=== PATIENT | male | born 1960 | race Caucasian/White ===

== ENCOUNTER → 2017-02-05 | Outpatient (CLI) | payer BC, OTHER ==
--- NOTE | 2017-02-10 23:28 | SLEEPCENT ---
DATE OF PROCEDURE: 02/05/2017 ORDERED BY: Jemima Perez Nocturnal polysomnography was performed for evaluation of sleep physiology in this patient with a prior history of sleep apnea, who has accomplished significant weight loss. 8 hours and 34 minutes of data were reviewed. There were 395 minutes of sleep identified. Sleep latency was prolonged at 46 minutes. Rapid eye movement (REM) latency was prolonged at 176 minutes. Sleep architecture showed severe fragmentation until interventions were made. Overall sleep efficiency was 77.9%. The patient's electrocardiogram showed a sinus rhythm with a borderline first-degree AV block, average heart rate was 57 beats per minute. Rate variability was seen between 45 and 80 beats per minute. EEG showed normal waveforms for awake and sleep. There were 178 respiratory events identified of 10 seconds in duration or greater for an apnea-hypopnea index of 27. Having clearly established the presence of obstructive sleep apnea syndrome early in the test, the study was stopped after midnight for the application of pressure therapy. The patient was already fit with a [employer] full face mask of medium size, 5 cm of water pressure were applied to the circuit and the lights were again extinguished. Pressure titration was performed throughout the remaining portion of the night to an optimal continuous positive airway pressure (CPAP) of +10 with which the patient slept through REM without respiratory event or oxygen desaturation. IMPRESSION: Obstructive sleep apnea syndrome (G47.33). RECOMMENDATION: Nightly use of pressure therapy 10 cm of water. Copy To: Dr. Crocker
== END ==
LOC: M SLEEP 19:44
PROVIDERS: ATTEND Nurse Practitioner Adult Health
DX: G47.33 Obstructive sleep apnea (adult) (pediatric) (principal)

== ENCOUNTER → 2017-04-22 | Outpatient (CLI) | payer BC, OTHER | LOC: M EKG 17:36 | DX: I10 Essential (primary) hypertension (principal) | CPT/HCPCS: 93005 ==

== ENCOUNTER 2017-05-01 09:17 | Day surgery (SDC) | payer BC, OTHER ==
[2017-05-01] MEDS: LR 1,000 ML IV ×2 (09:56→12:40)
[2017-05-01] MEDS ORDERED: ONDANSETRON 4MG/2ML VIAL (J2405) As Ordered (10:08)
[2017-05-01] MEDS ORDERED: dexameTHASONE 4 MG/ML 1ML VIAL (J1100) As Ordered (10:08)
[2017-05-01] MEDS ORDERED: ROCURONIUM BROMIDE 50 MG/5 ML VIAL As Ordered (10:08)
[2017-05-01] MEDS ORDERED: GLYCOPYRROLATE INJ 0.2 MG/ML 2 ML VIAL As Ordered (10:08)
[2017-05-01] MEDS ORDERED: HYDROmorphone HCL 2 MG/ML 1ML VIAL (J1170) As Ordered (10:08)
[2017-05-01] MEDS ORDERED: KETOROLAC 60 MG/2 ML VIAL (J1885) As Ordered (10:08)
[2017-05-01] MEDS ORDERED: NEOSTIGMINE 10 MG/10 ML VIAL (J2710) As Ordered (10:08)
[2017-05-01] MEDS ORDERED: LIDOCAINE 2% INJ 100 MG/5 ML SDV (FOR ANES.) As Ordered (10:08)
[2017-05-01] MEDS ORDERED: PROPOFOL 200 MG/20 ML VIAL As Ordered (10:08)
[2017-05-01] MEDS ORDERED: MIDAZOLAM INJ 2 MG/2 ML VIAL (J2250) As Ordered (10:09)
[2017-05-01] MEDS ORDERED: fentaNYL 100 MCG/2 ML INJECTION (J3010) As Ordered ×2 (10:09→12:19)
[2017-05-01] MEDS: LIDOCAINE W/EPINEPHRINE 1% 20ML VIAL As Ordered (11:37)
[2017-05-01] MEDS ORDERED: PERCOCET 5MG/325MG TAB As Ordered (12:19)
[2017-05-01] MEDS: fentaNYL 100 MCG/2 ML INJECTION (J3010) IV ×3 (12:20→12:37)
[2017-05-01] MEDS: PERCOCET 5MG/325MG TAB PO (12:25)
[2017-05-01] MEDS ORDERED: MEPERIDINE INJ 25 MG/ML VIAL (J2175) IV (12:45)
[2017-05-01] MEDS ORDERED: ONDANSETRON 4MG/2ML VIAL (J2405) IV (12:45)
[2017-05-01] MEDS ORDERED: NORCO, ANEXSIA 5/325MG TABLET (HYDROcodone/ACETAMINOPHEN) PO (12:45)
[2017-05-01] MEDS ORDERED: KETOROLAC 30 MG/ML VIAL (J1885) IV (12:45)
== END 2017-05-01 14:50 | disposition home or self-care (01) ==
LOC: M SDC 09:17
DX: K80.12 Calculus of gallbladder with acute and chronic cholecystitis without obstruction (principal); I11.9 Hypertensive heart disease without heart failure; K21.9 Gastro-esophageal reflux disease without esophagitis; G47.30 Sleep apnea, unspecified; E66.9 Obesity, unspecified; Z98.84 Bariatric surgery status; Z88.1 Allergy status to other antibiotic agents; Z88.0 Allergy status to penicillin; Z88.2 Allergy status to sulfonamides; Z79.899 Other long term (current) drug therapy; Z79.84 Long term (current) use of oral hypoglycemic drugs
CPT/HCPCS: 47562

== ENCOUNTER → 2017-07-08 | Outpatient (CLI) | payer BC, OTHER ==
[2017-07-08 15:18] LABS: BASO % 0.4 % (0.0-1.0); EOS # 0.2 10^3/uL (0.0-0.50); EOS % 3.3 % (0.0-3.0); HEMOGLOBIN 14.1 g/dl (14.0-18.0); IMMATURE GRANULOCYTE % 0.2 % (0-3.0); LYMPH # 1.7 10^3/uL (1.5-4.5); LYMPH % 36.3 % (24.0-44.0); MEAN CORPUSCULAR HEMOGLOBIN 29.7 pg (27.0-33.0); MEAN CORPUSCULAR HGB CONC 34.4 g/dl (32.0-36.5); MEAN CORPUSCULAR VOLUME 86.5 fl (80.0-96.0); MONO # 0.5 10^3/uL (0.0-0.8); MONO % 10.9 % (0.0-5.0); NEUTROPHILS # 2.2 10^3/uL (1.8-7.7); NEUTROPHILS % 48.9 % (36.0-66.0); PLATELET COUNT, AUTOMATED 199 10^3/uL (150-450); RED BLOOD COUNT 4.74 10^6/uL (4.30-6.10); RED CELL DISTRIBUTION WIDTH 12.7 % (11.5-14.5); WHITE BLOOD COUNT 4.6 10^3/uL (4.0-10.0)
[2017-07-08 15:31] LABS: ESTIMATED AVERAGE GLUCOSE 100 MG/DL (60-110); HEMOGLOBIN A1c 5.1 %
[2017-07-08 15:41] LABS: VITAMIN B12 LEVEL 978 PG/ML (247-911)
[2017-07-08 15:46] LABS: ALBUMIN 3.8 GM/DL (3.2-5.2); ALBUMIN/GLOBULIN RATIO 1.23 (1.00-1.93); ALKALINE PHOSPHATASE 84 U/L (45-117); ALT/SGPT 25 U/L (12-78); ANION GAP 6 MEQ/L (8-16); AST/SGOT 17 U/L (7-37); BILIRUBIN,TOTAL 0.4 MG/DL (0.2-1.0); BLOOD UREA NITROGEN 16 MG/DL (7-18); CALCIUM LEVEL 8.7 MG/DL (8.5-10.1); CARBON DIOXIDE LEVEL 30 MEQ/L (21-32); CHLORIDE LEVEL 107 MEQ/L (98-107); CREATININE FOR GFR 0.72 MG/DL (0.70-1.30); FERRITIN 15 NG/ML (26-388); GLOMERULAR FILTRATION RATE > 60.0 (>56); GLUCOSE, FASTING 93 MG/DL (70-100); IRON (FE) 74 UG/DL (65-175); MAGNESIUM LEVEL 2.3 MG/DL (1.8-2.4); PERCENT SATURATION 21.1 % (19.7-50.0); PHOSPHORUS LEVEL 3.8 MG/DL (2.5-4.9); POTASSIUM SERUM 4.1 MEQ/L (3.5-5.1); SODIUM LEVEL 143 MEQ/L (136-145); TOTAL IRON BINDING CAPACITY 350 UG/DL (250-450); TOTAL PROTEIN 6.9 GM/DL (6.4-8.2)
[2017-07-10 12:43] LABS: PRETREATED FOLATE FOR RBCFOL 11.4 NG/ML; RBC FOLATE 583.9 NG/ML (280-791)
== END ==
LOC: M LAB 14:27
DX: E55.9 Vitamin D deficiency, unspecified (principal)

== ENCOUNTER → 2021-05-30 | Outpatient (CLI) | payer BC, OTHER ==
[~2021-05-30] MED LIST: CARV12.5 PO; LEVOTAB10 PO; MOME50SP2; OMEP40CA4 PO; SING5CHW23 PO
[2021-05-30 13:19] LABS: HEMOGLOBIN 14.7 g/dl (13.5-17.5); MEAN CORPUSCULAR HEMOGLOBIN 30.8 pg (27.0-33.0); MEAN CORPUSCULAR HGB CONC 34.2 g/dl (32.0-36.5); PLATELET COUNT, AUTOMATED 174 10^3/uL (150-450); RED BLOOD COUNT 4.78 10^6/uL (4.30-6.10)
[2021-05-30 13:52] LABS: ALBUMIN 3.7 GM/DL (3.2-5.2); ALT/SGPT 34 U/L (12-78); BILIRUBIN,TOTAL 0.5 MG/DL (0.2-1.0); BLOOD UREA NITROGEN 14 MG/DL (7-18); CALCIUM LEVEL 8.9 MG/DL (8.8-10.2); CARBON DIOXIDE LEVEL 29 MEQ/L (21-32); CHLORIDE LEVEL 106 MEQ/L (98-107); CHOLESTEROL LEVEL 115 MG/DL (<200); CHOLESTEROL RISK RATIO 2.446 (<5); CREATININE FOR GFR 0.78 MG/DL (0.70-1.30); GLOMERULAR FILTRATION RATE > 60.0 (>49); GLUCOSE, FASTING 118 MG/DL (70-100); HDL CHOLESTEROL 47 MG/DL (>40); LDL CHOLESTEROL 46 MG/DL (<100); NON-HDL-C 68 MG/DL; SODIUM LEVEL 141 MEQ/L (136-145); TOTAL PROTEIN 6.7 GM/DL (6.4-8.2); TRIGLYCERIDES LEVEL 111 MG/DL (<150)
[2021-05-30 22:25] LABS: MAGNESIUM LEVEL 2.1 MG/DL (1.7-2.2)
== END ==
LOC: M PLALAB 09:48
PROVIDERS: ATTEND Internal Medicine
DX: I11.9 Hypertensive heart disease without heart failure (principal)

== ENCOUNTER → 2021-05-30 | Outpatient (CLI) | payer BC, OTHER ==
[2021-05-30 14:01] LABS: FERRITIN 19 NG/ML (26-388); IRON (FE) 66 UG/DL (65-175); PERCENT SATURATION 18.9 % (19.7-50.0); PHOSPHORUS LEVEL 3.2 MG/DL (2.5-4.9); THYROID STIMULATING HORMONE 0.786 uIU/ML (0.358-3.740); TOTAL IRON BINDING CAPACITY 350 UG/DL (250-450)
[2021-05-30 22:26] LABS: MAGNESIUM LEVEL 2.1 MG/DL (1.7-2.2)
[2021-05-31 10:53] LABS: FOLATE 16.3 NG/ML; TOTAL 25(OH) VITAMIN D 44.8 NG/ML (30.0-100.0); VITAMIN B12 LEVEL > 2000 PG/ML
== END ==
LOC: M PLALAB 09:50
PROVIDERS: ATTEND Family Medicine
DX: Z98.84 Bariatric surgery status (principal)

== ENCOUNTER → 2021-10-13 | Outpatient (CLI) | payer BC, OTHER ==
[~2021-10-13] MED LIST changes: +ATOR40TA75 PO; +B-12100010 PO; +CALC1TAB42 PO; +GNP625TA PO; +IRON65TA2 PO; +MONT10TA97 PO; +OMEP40CA5 PO; +VITMTA PO
== END ==
LOC: M LABSMTC 12:25
PROVIDERS: ATTEND Anesthesiology
DX: Z01.812 Encounter for preprocedural laboratory examination (principal)

== ENCOUNTER 2021-10-16 09:25 | Day surgery (SDC) | payer BC, OTHER ==
[~2021-10-16] VITALS: Ht 177.8 cm; Wt 108.9 kg
[~2021-10-16 09:25] MED LIST changes: +NS 1,000 ML IV ONE
[2021-10-16] MEDS ORDERED: propofoL 200 MG/20 ML VIAL As Ordered ONE ×2 (10:38→10:48)
[2021-10-16 11:06] VITALS: BP 116/58
== END 2021-10-16 11:18 | disposition home or self-care (01) ==
LOC: M SDC 09:25
PROVIDERS: ATTEND Surgery
DX: K64.0 First degree hemorrhoids (principal); K92.1 Melena; I11.9 Hypertensive heart disease without heart failure; Z98.84 Bariatric surgery status

== ENCOUNTER → 2022-03-25 | Outpatient (CLI) | payer BC, OTHER ==
[~2022-03-25] MED LIST changes: -NS 1,000 ML IV ONE
[2022-03-25 15:13] LABS: BASO % 0.5 % (0.0-1.0); EOS # 0.1 10^3/uL (0.0-0.5); EOS % 2.4 % (0.0-3.0); HEMATOCRIT 44.6 % (42.0-52.0); HEMOGLOBIN 14.7 g/dl (13.5-17.5); LYMPH # 1.2 10^3/uL (1.5-5.0); LYMPH % 31.7 % (24.0-44.0); MEAN CORPUSCULAR HEMOGLOBIN 30.9 pg (27.0-33.0); MEAN CORPUSCULAR VOLUME 93.7 fl (80.0-96.0); MONO # 0.4 10^3/uL (0.0-0.8); MONO % 11.7 % (2.0-8.0); NEUTROPHILS % 53.4 % (36.0-66.0); PLATELET COUNT, AUTOMATED 173 10^3/uL (150-450); RED BLOOD COUNT 4.76 10^6/uL (4.30-6.10); WHITE BLOOD COUNT 3.8 10^3/uL (4.0-10.0)
[2022-03-25 15:28] LABS: ALBUMIN 3.8 G/DL (3.2-5.2); CHLORIDE LEVEL 107 MMOL/L (98-107); SODIUM LEVEL 143 MMOL/L (136-145)
[2022-03-25 15:29] LABS: CARBON DIOXIDE LEVEL 30 MMOL/L (20-31); PROSTATIC SPECIFIC AG MONITOR 0.94 NG/ML (< 4.00)
[2022-03-25 15:33] LABS: FERRITIN 20.3 NG/ML (10.5-307.3); TOTAL 25(OH) VITAMIN D 40.4 NG/ML (20.0-100.0)
[2022-03-25 15:34] LABS: BLOOD UREA NITROGEN 14 MG/DL (9-23); CALCIUM LEVEL 9.1 MG/DL (8.3-10.6); GLUCOSE, FASTING 106 MG/DL (74-106); MAGNESIUM LEVEL 2.1 MG/DL (1.8-2.4); PHOSPHORUS LEVEL 2.8 MG/DL (2.4-5.1); TRIGLYCERIDES LEVEL 83 MG/DL (<150)
[2022-03-25 15:35] LABS: ALKALINE PHOSPHATASE 68 U/L (46-116); IRON (FE) 69 UG/DL (65-175)
[2022-03-25 15:36] LABS: ALT/SGPT 28 U/L (7.0-40); AST/SGOT 26 U/L (<34); BILIRUBIN,TOTAL 0.6 MG/DL (0.3-1.2); CHOLESTEROL LEVEL 102 MG/DL (<200); CHOLESTEROL RISK RATIO 2.41 (<5); CREATININE FOR GFR 0.73 MG/DL (0.70-1.30); GLOMERULAR FILTRATION RATE > 60.0 (>49); HDL CHOLESTEROL 42.2 MG/DL (>40); LDL CHOLESTEROL 43.2 MG/DL (<100); NON-HDL-C 60 MG/DL; PERCENT SATURATION 21.1 % (19.7-50.0); TOTAL IRON BINDING CAPACITY 327 UG/DL (250-425); TOTAL PROTEIN 6.4 G/DL (5.7-8.2)
[2022-03-25 20:19] LABS: VITAMIN B12 LEVEL > 2000 PG/ML (211-911)
[2022-03-26 17:13] LABS: FOLATE > 24.00 NG/ML (>5.4)
== END ==
LOC: M PLALAB 09:30
PROVIDERS: ATTEND Family Medicine
DX: Z98.84 Bariatric surgery status (principal)

== ENCOUNTER → 2023-02-10 | Outpatient (CLI) | payer BC, OTHER ==
[2023-02-10 14:22] LABS: BASO % 0.7 % (0.0-1.0); EOS # 0.2 10^3/uL (0.0-0.5); EOS % 3.4 % (0.0-3.0); HEMOGLOBIN 15.3 g/dl (13.5-17.5); LYMPH # 1.4 10^3/uL (1.5-5.0); LYMPH % 32.2 % (24.0-44.0); MEAN CORPUSCULAR HEMOGLOBIN 31.2 pg (27.0-33.0); MEAN CORPUSCULAR HGB CONC 33.3 g/dl (32.0-36.5); MEAN CORPUSCULAR VOLUME 93.7 fl (80.0-96.0); MONO # 0.6 10^3/uL (0.0-0.8); NEUTROPHILS # 2.3 10^3/uL (1.5-8.5); NEUTROPHILS % 50.5 % (36.0-66.0); PLATELET COUNT, AUTOMATED 185 10^3/uL (150-450); RED BLOOD COUNT 4.91 10^6/uL (4.30-6.10); WHITE BLOOD COUNT 4.5 10^3/uL (4.0-10.0)
[2023-02-10 14:28] LABS: IRON (FE) 95 UG/DL (65-175); PERCENT SATURATION 26.8 % (19.7-50.0); TOTAL IRON BINDING CAPACITY 354 UG/DL (250-425)
[2023-02-10 14:33] LABS: HEMOGLOBIN A1c 4.8 % (4.0-6.0)
[2023-02-10 14:38] LABS: ALKALINE PHOSPHATASE 83 U/L (46-116); ALT/SGPT 28 U/L (7.0-40); AST/SGOT 21 U/L (<34); BILIRUBIN,TOTAL 0.6 MG/DL (0.3-1.2); BLOOD UREA NITROGEN 16 MG/DL (9-23); CALCIUM LEVEL 9.1 MG/DL (8.3-10.6); CARBON DIOXIDE LEVEL 31 MMOL/L (20-31); CHLORIDE LEVEL 105 MMOL/L (98-107); CHOLESTEROL LEVEL 110 MG/DL (<200); CREATININE FOR GFR 0.75 MG/DL (0.70-1.30); FERRITIN 26.9 NG/ML (10.5-307.3); FOLATE 23.5 NG/ML (>5.4); GLOMERULAR FILTRATION RATE > 60.0 (>49); GLUCOSE, FASTING 112 MG/DL (74-106); HDL CHOLESTEROL 42.2 MG/DL (>40); MAGNESIUM LEVEL 2.1 MG/DL (1.8-2.4); NON-HDL-C 67.8 MG/DL; POTASSIUM SERUM 3.8 MMOL/L (3.5-5.1); PROSTATIC SPECIFIC AG MONITOR 1.49 NG/ML (< 4.00); SODIUM LEVEL 142 MMOL/L (136-145); TOTAL 25(OH) VITAMIN D 52.6 NG/ML (20.0-100.0); TOTAL PROTEIN 6.8 G/DL (5.7-8.2); TRIGLYCERIDES LEVEL 134 MG/DL (<150); VITAMIN B12 LEVEL 860 PG/ML (211-911)
== END ==
LOC: M PLALAB 09:12
PROVIDERS: ATTEND Family Medicine
DX: Z98.84 Bariatric surgery status (principal)

== ENCOUNTER → 2023-10-06 | Outpatient (CLI) | payer BC ==
[~2023-10-06] MED LIST changes: +MONT5TAB7 PO; -SING5CHW23 PO
== END ==
LOC: M PLAIMG 13:24
PROVIDERS: ATTEND Family Medicine
DX: I77.819 Aortic ectasia, unspecified site (principal)

== ENCOUNTER → 2023-11-16 | Outpatient (CLI) | payer BC | LOC: M PLAIMG 14:17 | PROVIDERS: ATTEND Family Medicine | DX: M54.16 Radiculopathy, lumbar region (principal) ==

== ENCOUNTER → 2023-11-26 | Outpatient (CLI) | payer BC | LOC: M PLAIMG 10:38 | PROVIDERS: ATTEND Family Medicine | DX: M48.061 Spinal stenosis, lumbar region without neurogenic claudication (principal); M51.26 Other intervertebral disc displacement, lumbar region; M47.816 Spondylosis without myelopathy or radiculopathy, lumbar region; M54.16 Radiculopathy, lumbar region ==

== ENCOUNTER → 2024-02-04 | Outpatient (CLI) | payer BC ==
[2024-02-04 14:16] LABS: BASO % 0.8 % (0.0-1.0); EOS # 0.2 10^3/uL (0.0-0.5); EOS % 4.8 % (0.0-3.0); HEMATOCRIT 44.5 % (42.0-52.0); HEMOGLOBIN 15.2 g/dl (13.5-17.5); LYMPH # 1.3 10^3/uL (1.5-5.0); LYMPH % 33.5 % (24.0-44.0); MEAN CORPUSCULAR HEMOGLOBIN 32.1 pg (27.0-33.0); MEAN CORPUSCULAR HGB CONC 34.2 g/dl (32.0-36.5); MEAN CORPUSCULAR VOLUME 94.1 fl (80.0-96.0); MONO # 0.5 10^3/uL (0.0-0.8); MONO % 12.4 % (2.0-8.0); NEUTROPHILS # 1.9 10^3/uL (1.5-8.5); PLATELET COUNT, AUTOMATED 178 10^3/uL (150-450); RED BLOOD COUNT 4.73 10^6/uL (4.30-6.10); WHITE BLOOD COUNT 3.9 10^3/uL (4.0-10.0)
[2024-02-04 14:18] LABS: VITAMIN B12 LEVEL 631 PG/ML (211-911)
[2024-02-04 14:19] LABS: THYROID STIMULATING HORMONE 0.881 uIU/ML (0.55-4.78)
[2024-02-04 14:21] LABS: FERRITIN 28.5 NG/ML (10.5-307.3); TOTAL IRON BINDING CAPACITY 346 UG/DL (250-425)
[2024-02-04 14:22] LABS: ALBUMIN 3.7 G/DL (3.2-5.2); ALKALINE PHOSPHATASE 78 U/L (46-116); ALT/SGPT 26 U/L (7.0-40); AST/SGOT 20 U/L (<34); BILIRUBIN,TOTAL 0.5 MG/DL (0.3-1.2); BLOOD UREA NITROGEN 11 MG/DL (9-23); CALCIUM LEVEL 9.4 MG/DL (8.3-10.6); CARBON DIOXIDE LEVEL 28 MMOL/L (20-31); CHLORIDE LEVEL 109 MMOL/L (98-107); CHOLESTEROL LEVEL 119 MG/DL (<200); CHOLESTEROL RISK RATIO 3.07 (<5); CREATININE FOR GFR 0.71 MG/DL (0.70-1.30); GLOMERULAR FILTRATION RATE > 60.0 (>49); GLUCOSE, FASTING 110 MG/DL (74-106); HDL CHOLESTEROL 38.7 MG/DL (>40); IRON (FE) 82 UG/DL (65-175); LDL CHOLESTEROL 48.7 MG/DL (<100); MAGNESIUM LEVEL 2.2 MG/DL (1.8-2.4); NON-HDL-C 80.3 MG/DL; PERCENT SATURATION 23.7 % (19.7-50.0); POTASSIUM SERUM 4.2 MMOL/L (3.5-5.1); SODIUM LEVEL 143 MMOL/L (136-145); TOTAL PROTEIN 6.6 G/DL (5.7-8.2); TRIGLYCERIDES LEVEL 158 MG/DL (<150)
[2024-02-04 14:24] LABS: FOLATE > 24.0 NG/ML (>5.4)
[2024-02-04 15:15] LABS: HEMOGLOBIN A1c 5.1 % (4.0-6.0)
== END ==
LOC: M PLALAB 10:12
PROVIDERS: ATTEND Family Medicine
DX: I10 Essential (primary) hypertension (principal)

== ENCOUNTER → 2024-08-31 | Outpatient (CLI) | payer BC | LOC: M WUC 12:44 | PROVIDERS: ATTEND Physician Assistant | DX: S63.511A Sprain of carpal joint of right wrist, initial encounter (principal); W18.30XA Fall on same level, unspecified, initial encounter; Y92.009 Unspecified place in unspecified non-institutional (private) residence as the place of occurrence of the external cause ==

== ENCOUNTER → 2025-01-16 | Outpatient (CLI) | payer BC ==
[2025-01-16 10:34] LABS: BASO # 0.0 10^3/uL (0.0-0.2); BASO % 0.5 % (0.0-1.0); EOS # 0.2 10^3/uL (0.0-0.5); EOS % 4.5 % (0.0-3.0); LYMPH # 1.2 10^3/uL (1.5-5.0); LYMPH % 32.4 % (24.0-44.0); MONO # 0.5 10^3/uL (0.0-0.8); MONO % 12.0 % (2.0-8.0); NEUTROPHILS # 1.9 10^3/uL (1.5-8.5); NEUTROPHILS % 50.3 % (36.0-66.0); PLATELET COUNT, AUTOMATED 196 10^3/uL (150-450)
[2025-01-16 11:03] LABS: ALT/SGPT 30 U/L (7.0-40); AST/SGOT 27 U/L (<34); CALCIUM LEVEL 9.1 MG/DL (8.3-10.6); CARBON DIOXIDE LEVEL 30 MMOL/L (20-31); CHLORIDE LEVEL 105 MMOL/L (98-107); CREATININE FOR GFR 0.77 MG/DL (0.70-1.30); GLOMERULAR FILTRATION RATE > 90.0 (>49); POTASSIUM SERUM 4.1 MMOL/L (3.5-5.1); SODIUM LEVEL 142 MMOL/L (136-145)
== END ==
LOC: M PLALAB 08:19
PROVIDERS: ATTEND Internal Medicine Cardiovascular Disease
DX: I50.9 Heart failure, unspecified (principal); I48.0 Paroxysmal atrial fibrillation; R06.02 Shortness of breath